=== PATIENT | female | born 1945 | race Caucasian/White ===

== ENCOUNTER 2017-08-30 19:29 | Emergency (ER) | payer MEDICARE, MEDICAID ==
--- NOTE | 2017-08-30 20:00 | Emergency Department Record ---
History of Present Illness - General Chief complaint: Female Urogenital Problem Stated complaint: BLOOD IN URINE Time Seen by Provider: 08/30/17 19:47 Source: Family Mode of Arrival: EMS Limitations: Physical limitation - History of Present Illness Initial comments: The patient is here with a caregiver due to the caregiver noticing blood on her diaper when she changed her this evening. The patient is developmentally delayed and non ambulatory and does not communicate normally. She does have a hx of UTI's. There has been no fever, chills, AP, vomiting, or diarrhea. Per the caregiver the patient's family have not wanted the patient to have a vaginal exam in the past. She has not had any [employer] MEMBER evaluation in her lifetime per the [facility]. MD Complaint: Dysuria Onset/Timin -: Minutes(s) Patient : No - Related Data Home Medications Medication Instructions Recorded Confirmed Last Taken Cyanocobalamin (Vitamin B-12) 1,000 mcg PO DAILY 08/30/17 08/30/17 [Vitamin B-12] Guaifenesin [Mucinex] 600 mg PO DAILY PRN 08/30/17 08/30/17 08/11/17 Ibuprofen 200 mg Tablet [Motrin 600 mg PO Q6H PRN 08/30/17 08/30/17 Unknown 200Mg] Melatonin 5 mg PO DAILY 08/30/17 08/30/17 08/30/17 Methylcellulose [Citrucel] 479 gm PO DAILY 08/30/17 08/30/17 Unknown Multivitamin [Multi-Vitamin Daily] 1 each PO DAILY 08/30/17 08/30/17 Unknown Risperidone [Risperadol] 1 mg PO DAILY 08/30/17 08/30/17 08/30/17 Risperidone [Risperidone Odt] 0.5 mg PO DAILY PRN MDD 1 08/30/17 08/30/17 Allergies Allergy/AdvReac Type Severity Reaction Status Date / Time clindamycin Allergy HIVES Verified 08/30/17 19:33 desipramine Allergy PT UNSURE Verified 08/30/17 19:33 OF REACTION pneumococcal vaccine Allergy SWELLING Verified 08/30/17 19:33 (GENERAL) sulfamethoxazole Allergy PT UNSURE Verified 08/30/17 19:33 [From Bactrim] OF REACTION trimethoprim [From Bactrim] Allergy PT UNSURE Verified 07/20/18 19:33 OF REACTION Travel Screening - Travel/Exposure Within Last 30 Days Have you traveled within the last 30 days?: No - Travel/Exposure Within Last Year Have you traveled outside the [place] in the last year?: No - Additonal Travel Details Have you been exposed to anyone with a communicable illness?: No - Travel Symptoms Symptom Screening: None Review of Systems Constitutional: Denies: Chills, Fever Eyes: Denies: Eye discharge ENT: Denies: Congestion Respiratory: Denies: Cough Cardiovascular: Denies: Arrhythmia Endocrine: Denies: Fatigue Gastrointestinal: Denies: Abdominal pain Genitourinary: Reports: Hematuria Musculoskeletal: Denies: Arthralgia Skin: Denies: Bruising Past Medical History - SOCIAL HISTORY Smoking Status: Never smoker Alcohol Use: None Drug Use: None - RESPIRATORY Hx Respiratory Disorders: Yes Hx COPD: Yes - CARDIOVASCULAR Hx Cardio Disorders: Yes Hx Hypertension: Yes - NEURO Hx Neuro Disorders: Yes Hx Seizures: Yes Hx Speech Problem: Yes - GI Hx GI Disorders: No - Hx Genitourinary Disorders: Yes Comment:: incont. - ENDOCRINE Hx Endocrine Disorders: Yes Hx Diabetes: Yes Hx Thyroid Disease: Yes - MUSCULOSKELETAL Hx Musculoskeletal Disorders: Yes Comment:: wheel chair bound - PSYCH Hx Psych Problems: Yes Hx Anxiety: Yes Hx Depression: Yes - HEMATOLOGY/ONCOLOGY Hx Hematology/Oncology Disorders: No Family Medical History Any Significant Family History?: No Family Hx Comment (NOT TO BE USED IN PLACE OF ITEMS BELOW): unknown Hx Cancer: Father, Mother, Brother/Sister Physical Exam - General General Appearance: Alert, Cooperative, No acute distress - Head Head exam: Atraumatic, Normocephalic, Normal inspection - Eye Eye exam: Normal appearance, PERRL - Neck Neck exam: Normal inspection, Full ROM. negative: Tenderness - Respiratory Respiratory exam: Normal lung sounds bilaterally. negative: Respiratory distress - Cardiovascular Cardiovascular Exam: Regular rate, Normal rhythm, Normal heart sounds - GI/Abdominal GI/Abdominal exam: Soft, Normal bowel sounds. negative: Tenderness - Extremities Extremities exam: Normal inspection, Full ROM, Normal capillary refill. negative: Tenderness - Neurological Neurological exam: Abnormal gait (chronic.), Alert. negative: Motor sensory deficit, Normal gait - Psychiatric Psychiatric exam: negative: Agitated - Skin Skin exam: negative: Rash Course Vital Signs 08/30/17 19:33 Temperature 99.2 F Pulse Rate 62 Respiratory 18 Rate Blood Pressure 127/74 Pulse Ox 91 L - Reevaluation(s) Reevaluation #1: I did discus the issues with the caregiver. The patient needs a pelvic US but we are not able to perform that test due to no tech at night. The patient does have an appointment with her PCP in 4 days so it will need to be addressed at that time. 08/30/17 21:08 Medical Decision Making - Data Complexity MDM Data: Labs Ordered and/or Reviewed - Lab Data Result diagrams: 08/30/17 20:15 08/30/17 20:15 Disposition Disposition: Discharge Clinical Impression: Vaginal bleeding problems Disposition: Home, Self-Care Condition: (2) Stable Instructions: Dysfunctional Uterine Bleeding (ED) Additional Instructions: Please see your doctor next Saturday for a full pelvic exam and to have an US scheduled. Return to the ER for any worsening symptoms. Forms: Patient Portal Access Time of Disposition: 21:10 Quality - Quality Measures Quality Measures: N/A - Blood Pressure Screening View Details: Yes Does Patient Have Any of the Following: No Blood Pressure Classification: Pre-Hypertensive BP Reading Systolic Measurement: 127 Diastolic Measurement: 74 Screening for High Blood Pressure: < Pre-Hypertensive BP, F/U Documented > [ [id number]] Pre-Hypertensive Follow-up Interventions: Referral to alternative/primary care provider.
[2017-08-30 20:30] LABS: URINE APPEARANCE CLEAR; URINE BILIRUBIN NEGATIVE (NEGATIVE); URINE BLOOD TRACE-I (NEGATIVE); URINE COLOR YELLOW; URINE GLUCOSE (UA) NEGATIVE (NEGATIVE); URINE KETONE NEGATIVE (NEGATIVE); URINE LEUKOCYTE ESTERASE NEGATIVE (NEGATIVE); URINE NITRITE NEGATIVE (NEGATIVE); URINE PROTEIN NEGATIVE (NEGATIVE); URINE UROBILINOGEN 0.2 E.U./dL (0.20 - 1.00)
[2017-08-30 20:31] LABS: BASO % 0.7 % (0-6); BLOOD UREA NITROGEN 18 mg/dL (8-23); CREATININE 0.4 mg/dL (0.5-0.9); EOS % 1.4 % (0-6); EST GLOMERULAR FILTRATION RATE > 60 mL/min; GRAN % 69.5 % (47-80); HEMOGLOBIN 13.7 gm/dl (11.6-16.0); LYMPH % 17.7 % (16-45); MEAN CELL VOLUME 80.4 fl (81-97); MEAN CORPUSCULAR HEMOGLOBIN 25.6 pg (27-33); MEAN CORPUSCULAR HGB CONC 31.9 g/dl (32-36); MEAN PLATELET VOLUME 11.2 fl (7.4-10.4); MONO % 10.7 % (0-9); PLATELET COUNT 179 K/uL (130-400); RED BLOOD COUNT 5.35 M/uL (3.80-5.40); RED CELL DISTRIBUTION WIDTH 14.1 % (11.5-14.5); WHITE BLOOD COUNT W/O DIFF 11.1 K/uL (4.2-12.2)
[2017-08-30 20:32] LABS: TOTAL PROTEIN 6.8 g/dL (6.6-8.7)
[2017-08-30 20:34] LABS: GLUCOSE,RANDOM 121 mg/dL (74-109)
[2017-08-30 20:37] LABS: ALT/SGPT 27 U/L (<33)
[2017-08-30 20:56] LABS: URINE RBC 0 - 2 (NONE SEEN); URINE WBC NONE SEEN (0-2/hpf)
[2017-08-30 20:57] LABS: URINE BACTERIA FEW; URINE EPITHELIAL CELLS 0 - 2 (FEW)
[2017-08-30 22:15] LABS: ALB/GLOB RATIO 1.4 (1.1-1.8); ALKALINE PHOSPHATASE 100 U/L (35-104); AST/SGOT 22 U/L (10.0-35.0)
[2017-08-30] MEDS ORDERED: HYDROMORPHONE HCL 2 MG/ML VIAL IVP ONE (22:29)
== END 2017-08-30 22:02 | disposition home or self-care (01) ==
LOC: EDBD 19:29 → ER 19:29
DX: N93.9 Abnormal uterine and vaginal bleeding, unspecified (principal); I10 Essential (primary) hypertension; E11.9 Type 2 diabetes mellitus without complications
CPT/HCPCS: 80053; 81001; 85025; 99283

== ENCOUNTER 2017-12-08 13:34 | Emergency (ER) | payer MEDICARE, MEDICAID ==
--- NOTE | 2017-12-08 13:56 | Emergency Department Record ---
History of Present Illness - General Chief complaint: Female Urogenital Problem Stated complaint: URINARY TRACT INFECTION Time Seen by Provider: 12/08/17 13:50 Source: Family, [employer] Mode of Arrival: Wheelchair Limitations: Physical limitation - History of Present Illness Initial comments: The patient's caregiver states the patient's urine was green this AM. She has a hx of frequent UTI's. There has been no fever, vomiting, or pain reported. The patient is nonverbal and non ambulatory and lives in a [place] [facility]. The patient also has a hx of vaginal bleeding for the last few months. Her caregiver has declined any evaluation for that. MD Complaint: Dysuria - Related Data Allergies Allergy/AdvReac Type Severity Reaction Status Date / Time clindamycin Allergy HIVES Verified 12/08/17 13:59 desipramine Allergy PT UNSURE Verified 12/08/17 13:59 OF REACTION pneumococcal vaccine Allergy SWELLING Verified 12/08/17 13:59 (GENERAL) sulfamethoxazole Allergy PT UNSURE Verified 12/08/17 13:59 [From Bactrim] OF REACTION trimethoprim [From Bactrim] Allergy PT UNSURE Verified 12/08/17 13:59 OF REACTION Review of Systems Constitutional: Denies: Chills, Fever Past Medical History - SOCIAL HISTORY Smoking Status: Never smoker Drug Use: None - RESPIRATORY Hx Respiratory Disorders: Yes Hx COPD: Yes - CARDIOVASCULAR Hx Cardio Disorders: Yes Hx Hypertension: Yes - NEURO Hx Neuro Disorders: Yes Hx Seizures: Yes Hx Speech Problem: Yes - GI Hx GI Disorders: No - Hx Genitourinary Disorders: Yes Comment:: incont. - ENDOCRINE Hx Endocrine Disorders: Yes Hx Diabetes: Yes Hx Thyroid Disease: Yes - MUSCULOSKELETAL Hx Musculoskeletal Disorders: Yes Comment:: wheel chair bound - PSYCH Hx Psych Problems: Yes Hx Anxiety: Yes Hx Depression: Yes - HEMATOLOGY/ONCOLOGY Hx Hematology/Oncology Disorders: No Family Medical History Family Hx Comment (NOT TO BE USED IN PLACE OF ITEMS BELOW): unknown Hx Cancer: Father, Mother, Brother/Sister Physical Exam - General General Appearance: Alert, No acute distress - Head Head exam: Atraumatic, Normocephalic - Eye Eye exam: Normal appearance, PERRL - Neck Neck exam: Normal inspection, Full ROM. negative: Tenderness - Respiratory Respiratory exam: Normal lung sounds bilaterally. negative: Respiratory distress - Cardiovascular Cardiovascular Exam: Regular rate, Normal rhythm, Normal heart sounds Disposition Disposition: Discharge Clinical Impression: Hematuria Qualifiers: Hematuria type: unspecified type Qualified Code(s): R31.9 - Hematuria, unspecified Disposition: Home, Self-Care Condition: (2) Stable Instructions: Hematuria (ED) Additional Instructions: Please see your family doctor for further evaluation. Please return to the ER if her caregiver changes her mind about working up the vaginal bleeding. Forms: Patient Portal Access Time of Disposition: 14:12 Quality - Quality Measures Quality Measures: N/A - Blood Pressure Screening View Details: Yes Does Patient Have Any of the Following: No Blood Pressure Classification: Normal BP Reading Systolic Measurement: 108 Diastolic Measurement: 59 Screening for High Blood Pressure: < Normal BP, F/U Not Required > [G8783]
[2017-12-08 13:59] LABS: URINE APPEARANCE SL CLOUDY; URINE BILIRUBIN NEGATIVE (NEGATIVE); URINE BLOOD LARGE (NEGATIVE); URINE COLOR YELLOW; URINE KETONE NEGATIVE (NEGATIVE); URINE LEUKOCYTE ESTERASE NEGATIVE (NEGATIVE); URINE NITRITE NEGATIVE (NEGATIVE); URINE PROTEIN NEGATIVE (NEGATIVE); URINE UROBILINOGEN 0.2 E.U./dL (0.20 - 1.00)
[2017-12-08 14:06] LABS: URINE BACTERIA FEW; URINE SQUAMOUS EPITHELIAL CELL 0 - 2 /hpf; URINE WBC 0 - 2 (0-2/hpf)
== END 2017-12-08 14:19 | disposition home or self-care (01) ==
LOC: ER 13:34
DX: R31.29 Other microscopic hematuria (principal); R30.0 Dysuria; I10 Essential (primary) hypertension; J44.9 Chronic obstructive pulmonary disease, unspecified
CPT/HCPCS: 81001; 99282